=== PATIENT | female | born 1960 | race Caucasian/White ===

== ENCOUNTER 2017-12-28 05:40 | Outpatient (CLI) | payer BC ==
[~2017-12-28] VITALS: Ht 154.9 cm; Wt 68.0 kg
[2017-12-31] MEDS ORDERED: SERT50TA2 PO (14:46)
[2017-12-31] MEDS ORDERED: MULT-351 PO (14:46)
== END 2017-12-31 14:51 ==
LOC: PREOP 05:40
PROVIDERS: ATTEND Specialist
DX: Z01.818 Encounter for other preprocedural examination (principal); H25.11 Age-related nuclear cataract, right eye

== ENCOUNTER 2018-01-04 09:12 | Day surgery (SDC) | payer BC ==
[~2018-01-04] VITALS: Ht 154.9 cm; Wt 68.0 kg
[~2018-01-04 09:12] MED LIST: MULT-351 PO; SERT50TA2 PO
[2018-01-04] MEDS ORDERED: VANCOMYCIN/BSS (COMPOUNDED) 10 MG/ML SYR OP ONE (09:15)
[2018-01-04] MEDS ORDERED: POVIDONE (BETADINE) OPHTH SOLN 5% 30 ML OP ONE (09:15)
[2018-01-04] MEDS ORDERED: TIMOLOL MALEATE 0.5% 5 ML (TIMOPTIC) BTL OU PRN (09:15)
[2018-01-04] MEDS ORDERED: LIDOCAINE PF 1% 2 ML AMP IR PRN (09:15)
[2018-01-04] MEDS ORDERED: EPINEPHrine INJECTION 1 MG/ML AMP INJ ONE (09:15)
[2018-01-04] MEDS: TETRACAINE 0.5% OPHTH SOLN 4 ML BTL (SINGLE DOSE ONLY) OU PRN ×4 (09:23→09:37)
[2018-01-04 09:25] VITALS: BP 101/61
[2018-01-04] MEDS: PHENYLEPHRINE 10% OPHTH (NEO-SYN) 5 ML BTL OU SCH ×3 (09:30→09:38)
[2018-01-04] MEDS: CYCLOPENTOLATE 1% (CYCLOGYL) 2 ML DROPS OP SCH ×3 (09:30→09:37)
--- NOTE | 2018-01-04 09:36 | Ophthalmologist Pre-Op Note ---
Pre-Operative Progress Note H&P Reviewed The H&P was reviewed, patient examined and no changes noted. Date H&P Reviewed: January 04, 2018 Time H&P Reviewed: 09:36 Pre-Op Dx Cataract, Right Eye CRISTOBAL YI MD January 04, 2018 09:36
[2018-01-04] MEDS ORDERED: MIDAZOLAM 2 MG/2 ML (VERSED) VIAL ONE (09:46)
--- NOTE | 2018-01-04 10:13 | Ophthalmology Operative Report ---
Cataract removal/placement IOL PREOPERATIVE DIAGNOSIS: Cataract Right Eye POSTOPERATIVE DIAGNOSIS: Cataract Right Eye PROCEDURE: Cataract removal and placement of posterior chamber implant, right eye SURGEON: Chavez Yi ANESTHESIA: Topical with sedation COMPLICATIONS: None ESTIMATED BLOOD LOSS: Minimal DESCRIPTION OF PROCEDURE: After proper informed consent was obtained, the patient, a 57 female, was taken to the Operating Room and the right eye was anesthetized with tetracaine. They right eye was then prepped and draped in the usual manner. A wire lid speculum was placed. A paracentesis was made at the left hand position. Preservative free lidocaine was injected into the anterior chamber followed by viscoelastic. A clear corneal incision was made in the temporal position. A capsulorrhexis was preformed and the central nuclear and cortical material were removed. The posterior capsule was polished and José 20.5 SN6CWS IOL was placed into the capsular bag. The residual viscoelastic was aspirated and balanced saline solution was injected into the anterior chamber. 0.1ml of Vancomycin (10mg/0.1ml ) was injected into the anterior chamber. The wound was checked and found to be water tight. The patient tolerated the procedure well without complications. CHAVEZ YI MD January 04, 2018 10:13
[2018-01-04 10:23] VITALS: BP 98/74
--- NOTE | 2018-01-04 13:07 | Anesthesia-General Post-Op ---
MAC Patient Condition Mental Status/LOC: Same as Preop Cardiovascular: Satisfactory Nausea/Vomiting: Absent Respiratory: Satisfactory Pain: Controlled Complications: Absent Post Op Complications Complications None Follow Up Care/Instructions Patient Instructions None needed. Anesthesiology Discharge Order Discharge Order Patient is doing well, no complaints, stable vital signs, no apparent adverse anesthesia problems. No complications reported per nursing. FELIPE REINOSO CRNA January 04, 2018 13:07
== END 2018-01-04 10:23 | disposition home or self-care (01) ==
LOC: SDC 09:12
PROVIDERS: ATTEND Specialist
DX: H26.9 Unspecified cataract (principal)

== ENCOUNTER 2020-03-08 05:54 | Outpatient (RCR) | payer BC ==
[~2020-03-08] VITALS: Ht 154 cm; Wt 68.0 kg
[2020-03-10] MEDS ORDERED: CITA10TA7 PO (13:40)
== END 2020-06-06 | disposition home or self-care (01) ==
LOC: PREOP 05:54
PROVIDERS: ATTEND Specialist
DX: Z01.818 Encounter for other preprocedural examination (principal)

== ENCOUNTER 2020-03-12 06:45 | Day surgery (SDC) | payer BC ==
[~2020-03-12] VITALS: Ht 154 cm; Wt 68.0 kg
[~2020-03-12 06:45] MED LIST changes: +CITA10TA7 PO
[2020-03-12 06:50] VITALS: BP 107/69
[2020-03-12] MEDS ORDERED: TROPICAMIDE 1% OPH SOLN (MYDRIACYL) 15 ML BTL OU PRN (07:00)
[2020-03-12] MEDS ORDERED: PHENYLEPHRINE 10% OPHTH (NEO-SYN) 5 ML BTL OU PRN (07:00)
[2020-03-12] MEDS: TETRACAINE 0.5% OPHTH SOLN 4 ML BTL (SINGLE DOSE ONLY) OU PRN ×2 (07:07→07:32)
[2020-03-12 07:45] VITALS: BP 107/69
--- NOTE | 2020-03-12 08:07 | Ophthalmologist Pre-Op Note ---
Pre-Operative Progress Note H&P Reviewed The H&P was reviewed, patient examined and no changes noted. Date H&P Reviewed: Mar 12, 2020 Time H&P Reviewed: 07:41 Pre-Op Dx Secondary Cataract, Right Eye CRISTOBAL YI MD Mar 12, 2020 08:07
--- NOTE | 2020-03-12 08:08 | Ophthalmology Operative Report ---
YAG Capsulotomy PREOPERATIVE DIAGNOSIS: Secondary Cataract Left Eye POSTOPERATIVE DIAGNOSIS: Secondary Cataract Left Eye PROCEDURE: YAG Capsulotomy, left eye SURGEON: Chavez Yi ANESTHESIA: Topical anesthesia COMPLICATIONS: None ESTIMATED BLOOD LOSS: Minimal DESCRIPTION OF PROCEDURE: After proper informed consent was obtained, the patient's, a 59 female left eye received one drop of Tropicamide and one drop of Tetracaine. The patient was then placed at the YAG laser and using a power of [ 4.0] millijoules and [18 ] bursts were used to fashion a central capsulotomy. The patient tolerated the procedure well without complications. CHAVEZ YI MD Mar 12, 2020 08:08
--- OUTSIDE RECORDS SUMMARY | 2020-03-12 09:11 | XMS REPORT | Continuity of Care Document ---
Author Organization Unknown Address Unknown Phone Unavailable Allergies Active Description Code Type Severity Reaction Onset Reported/Identified Relationship to Patient Clinical Status Yes Iodine and Iodide Containing Produc [id number] Drug Allergy Severe ANAPHYLACTIC SH 03/10/2020 Yes meclizine [id number] Drug Allergy Mild HIVES 03/10/2020 Medications There is no data. Problems Date Dx Coded Attending Type Code Diagnosis Diagnosed By 12/31/2017 CRISTOBAL YI MD Ot H25.11 AGE-RELATED NUCLEAR CATARACT, RIGHT EYE 12/31/2017 CRISTOBAL YI MD Ot Z01.818 ENCOUNTER FOR OTHER PREPROCEDURAL EXAMIN 12/31/2017 CRISTOBAL YI MD Ot H25.11 AGE-RELATED NUCLEAR CATARACT, RIGHT EYE 12/31/2017 CRISTOBAL YI MD Ot Z01.818 ENCOUNTER FOR OTHER PREPROCEDURAL EXAMIN 01/04/2018 CRISTOBAL YI MD Ot H26 .9 UNSPECIFIED CATARACT Procedures There is no data. Results There is no data. Encounters ACCT No. Visit Date/Time Discharge Status Pt. Type Provider Facility Loc./Unit Complaint [id number] 06/18/2019 08:29:00 06/18/2019 23:59: 00 [facility] Outpatient [facility], PHY [id number] 10/16/2018 09:58:00 10/16/2018 23:59: 00 DIS Outpatient Marianela Ward [id number] 03/08/2020 05:54:00 020 23:59:59 CLS Outpatient CRISTOBAL YI MD [facility] PREOP YAG [id number] 01/04/2018 09:12:00 018 10:23:00 DIS Outpatient CRISTOBAL YI MD [facility] SDC CATARACT RIGHT EYE [id number] 12/28/2017 05:40:00 018 14:51:00 DIS Outpatient CRISTOBAL YI MD [facility] PREOP CATARACT RIGHT EYE [id number] 03/12/2020 08:30:00 P EN Preadmit KD GAUTAM, CRISTOBAL [facility] YAG
== END 2020-03-12 07:45 | disposition home or self-care (01) ==
LOC: SDC 06:45
PROVIDERS: ATTEND Specialist
DX: H26.492 Other secondary cataract, left eye (principal)

== ENCOUNTER 2023-01-18 15:52 | Emergency (ER) | payer OTHER, BC ==
[~2023-01-18] VITALS: Ht 154 cm; Wt 69.3 kg
[~2023-01-18 15:52] MED LIST changes: -CITA10TA7 PO; +CITA10TA9 PO
[2023-01-18 16:05] VITALS: BP 110/79
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
== END 2023-01-18 16:43 | disposition home or self-care (01) ==
LOC: EDUNIT# 15:52 → ER 15:56
DX: S20.211A Contusion of right front wall of thorax, initial encounter (principal); V89.2XXA Person injured in unspecified motor-vehicle accident, traffic, initial encounter; Y92.410 Unspecified street and highway as the place of occurrence of the external cause
CPT/HCPCS: 99281

== ENCOUNTER 2023-04-05 11:04 | Inpatient (IN) | payer BC ==
[~2023-04-05] VITALS: Ht 155 cm; Wt 70.3 kg
[2023-04-05] MEDS ORDERED: NS IV 1000 ML 1,000 ML IV SCH (11:15)
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
[2023-04-05 11:23] LABS: BASOPHILS # (AUTO) 0.1 10^3/uL (0.0-0.1); BASOPHILS % (AUTO) 0 % (0-10); EOSINOPHILS % (AUTO) 0 % (0-10); HEMATOCRIT 43 % (35-52); HEMOGLOBIN 15.1 g/dL (11.5-16.0); LYMPHOCYTES # (AUTO) 1.2 10^3/uL (1.0-4.0); LYMPHOCYTES % (AUTO) 5 % (12-44); MEAN CORPUSCULAR HEMOGLOBIN 30 pg (25-34); MEAN CORPUSCULAR HGB CONC 35 g/dL (32-36); MEAN CORPUSCULAR VOLUME 86 fL (80-99); MEAN PLATELET VOLUME 9.8 fL (9.0-12.2); MONOCYTES # (AUTO) 0.7 10^3/uL (0.0-1.0); MONOCYTES % (AUTO) 3 % (0-12); NEUTROPHILS # (AUTO) 20.7 10^3/uL (1.8-7.8); NEUTROPHILS % (AUTO) 91 % (42-75); PLATELET COUNT 376 10^3/uL (130-400); WHITE BLOOD COUNT 22.7 10^3/uL (4.3-11.0)
[2023-04-05 11:30] LABS: ALBUMIN 4.2 GM/DL (3.2-4.5); POTASSIUM 3.1 MMOL/L (3.6-5.0)
[2023-04-05] MEDS ORDERED: LIDOCAINE UROJET 2% GEL 10 ML PKG TOP ONE (11:30)
[2023-04-05 11:32] LABS: CALCIUM 9.1 MG/DL (8.5-10.1)
[2023-04-05 11:35] LABS: BILIRUBIN,TOTAL 0.7 MG/DL (0.1-1.0)
[2023-04-05 11:36] LABS: CREATININE SERUM 0.67 MG/DL (0.60-1.30)
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
--- NOTE | 2023-04-05 11:41 | Diagnostic Imaging Report ---
PELVIS WITH LEFT HIP 2-3 VIEWS INDICATION: Left hip pain. COMPARISON: None available. TECHNIQUE: AP pelvis with AP and crosstable lateral views of the left hip. FINDINGS: There is an acute intertrochanteric fracture of the proximal left femur with a conventional orientation. The lesser trochanter fragment is medially displaced. No proximal migration of the femoral shaft. Mild osteoarthritis of the left hip. SI joints are normal in alignment. No fracture in the obturator ring on either side. IMPRESSION: Acute intertrochanteric fracture of the left femur. Dictated by: Dictated on workstation # [id number]
[2023-04-05] MEDS ORDERED: fentaNYL INJECTION 100 MCG/2 ML VIAL IVP ONE (12:00)
[2023-04-05 12:01] LABS: BAND NEUTROPHILS 1 %; LYMPHOCYTES % (MANUAL) 4 %; MONOCYTES % (MANUAL) 2 %; NEUTROPHILS % (MANUAL) 93 %; RBC MORPH NORMAL
[2023-04-05] MEDS ORDERED: POTASSIUM CHLORIDE 20 MEQ TABLET PO ONE (12:15)
[2023-04-05] MEDS ORDERED: ORPHENADRINE 60 MG/2 ML (NORFLEX) AMP (ED ONLY) IV ONE (12:15)
[2023-04-05 12:53] LABS: CLARITY,URINE CLEAR; COLOR,URINE YELLOW; GLUCOSE, URINE (UA) NEGATIVE (NEGATIVE); PH,URINE 7.5 (5-9); PROTEIN,URINE NEGATIVE (NEGATIVE)
[2023-04-05 12:54] LABS: KETONES,URINE TRACE (NEGATIVE)
[2023-04-05 12:56] LABS: BILIRUBIN,URINE NEGATIVE (NEGATIVE); LEUKOCYTE ESTERASE ,URINE NEGATIVE (NEGATIVE); NITRITE,URINE NEGATIVE (NEGATIVE)
[2023-04-05 12:57] LABS: AMORPHOUS SEDIMENT,UR MOD AMOR PHOSPHATE /LPF; BACTERIA,URINE NEGATIVE /HPF; SQUAMOUS EPITHELIAL CELL,UR RARE /HPF
[2023-04-05 14:15] VITALS: BP 141/83
[2023-04-05] MEDS: morphine INJ 4 MG/ML 1 ML (VIAL/SYRINGE) IVP PRN ×5 (14:30→22:59)
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
[2023-04-05] MEDS ORDERED: PROCHLORPERAZINE 10 MG/2ML INJ (COMPAZINE) IV PRN (15:00)
[2023-04-05] MEDS ORDERED: ONDANSETRON 4 MG/2 ML (SDV) Z0FRAN IVP PRN (15:00)
[2023-04-05] MEDS ORDERED: morphine INJ 4 MG/ML 1 ML (VIAL/SYRINGE) IVP PRN (15:15)
[2023-04-05] MEDS: NS IV 1000 ML 1,000 ML IV SCH ×2 (15:24→22:59)
[2023-04-05] MEDS: HYDROcodone/ACETAMINOPHEN 7.5 MG/325 MG TABLET PO PRN ×2 (15:33→19:53)
[2023-04-05 15:35] VITALS: BP 137/80
[2023-04-05] MEDS ORDERED: VITA-189 PO (15:43)
[2023-04-05] MEDS ORDERED: ASCO-262 PO (15:43)
[2023-04-05] MEDS ORDERED: CALC-823 PO (15:43)
--- NOTE | 2023-04-05 16:03 | HISTORY AND PHYSICAL ---
DATE OF SERVICE: 04/05/2023 REASON FOR ADMISSION: Closed displaced left intertrochanteric femur fracture. HISTORY OF PRESENT ILLNESS: The patient is a 63-year-old female who fell at home this morning. She twisted on a step landing on her left side. She was found down and brought to the Emergency Department where she was found to have a closed displaced left intertrochanteric femur fracture for which I was consulted. She denies antecedent pain. She reports prior history of hip problems. Radiographs revealed displaced closed intertrochanteric femur fracture. ALLERGIES: TO IODINE, MECLIZINE. HOME MEDICATIONS: Citalopram. PAST MEDICAL HISTORY: Significant for hypertension. The patient denies alcohol and tobacco use. PHYSICAL EXAMINATION: GENERAL: The patient is well-developed, well-nourished, in no acute distress. HEENT: Normocephalic, atraumatic. Pupils equal, round, reactive to light. Oropharynx is clear. NECK: Supple. No lymphadenopathy. LUNGS: Clear to auscultation bilaterally. HEART: Regular rate and rhythm. ABDOMEN: Soft, nontender, nondistended. EXTREMITIES: The left lower extremity shortened and externally rotated. She has symmetric pulses. She has intact dorsiflexion and plantarflexion of the toes with brisk capillary refill and symmetric pulses. IMPRESSION: Closed displaced left intertrochanteric femur fracture. PLAN: Left hip intramedullary nail. The risks, benefits, options, ramifications and recovery have been discussed at length with the patient. She understands and wishes to proceed. We will plan for surgical intervention tomorrow, n.p.o. after midnight. Job ID: [id number] DocumentID: [id number] Dictated Date: 04/05/2023 15:37:42 Painter Rough Date: 04/05/2023 16:01:00 Dictated By: DAVID LAST MD
[2023-04-05 19:26] VITALS: BP 146/80
[2023-04-05] MEDS ORDERED: diphenhydrAMINE 25 MG TABLET PO PRN (22:00)
[2023-04-05] MEDS ORDERED: diphenhydrAMINE INJ 50 MG/ML VIAL IV PRN (22:00)
[2023-04-05 23:01] VITALS: BP 114/73
[2023-04-06] VITALS (11 sets, daily range): BP systolic 81–143; BP diastolic 45–81
[2023-04-06] MEDS: HYDROcodone/ACETAMINOPHEN 7.5 MG/325 MG TABLET PO PRN ×4 (00:01→20:49)
[2023-04-06] MEDS: morphine INJ 4 MG/ML 1 ML (VIAL/SYRINGE) IVP PRN ×3 (04:24→18:46)
[2023-04-06 05:13] LABS: BASOPHILS # (AUTO) 0.1 10^3/uL (0.0-0.1); BASOPHILS % (AUTO) 1 % (0-10); EOSINOPHILS # (AUTO) 0.1 10^3/uL (0.0-0.3); EOSINOPHILS % (AUTO) 1 % (0-10); HEMATOCRIT 37 % (35-52); HEMOGLOBIN 12.5 g/dL (11.5-16.0); LYMPHOCYTES # (AUTO) 2.5 10^3/uL (1.0-4.0); LYMPHOCYTES % (AUTO) 26 % (12-44); MEAN CORPUSCULAR HEMOGLOBIN 30 pg (25-34); MEAN CORPUSCULAR HGB CONC 34 g/dL (32-36); MEAN CORPUSCULAR VOLUME 88 fL (80-99); MEAN PLATELET VOLUME 9.7 fL (9.0-12.2); MONOCYTES # (AUTO) 0.9 10^3/uL (0.0-1.0); MONOCYTES % (AUTO) 9 % (0-12); NEUTROPHILS # (AUTO) 6.2 10^3/uL (1.8-7.8); NEUTROPHILS % (AUTO) 63 % (42-75); PLATELET COUNT 299 10^3/uL (130-400); WHITE BLOOD COUNT 9.8 10^3/uL (4.3-11.0)
[2023-04-06 05:23] LABS: POTASSIUM 3.4 MMOL/L (3.6-5.0)
[2023-04-06 05:24] LABS: CALCIUM 8.4 MG/DL (8.5-10.1)
[2023-04-06 05:29] LABS: CREATININE SERUM 0.66 MG/DL (0.60-1.30)
[2023-04-06] MEDS: fentaNYL INJECTION 100 MCG/2 ML VIAL IVP PRN ×3 (07:44→17:33)
[2023-04-06] MEDS: NS IV 1000 ML 1,000 ML IV SCH (10:05)
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
[2023-04-06] MEDS ORDERED: MIDAZOLAM INJ 2 MG/2 ML VIAL ONE (11:50)
[2023-04-06] MEDS ORDERED: BUPIVACAINE 0.25% 30 ML VIAL ONE (12:01)
--- NOTE | 2023-04-06 13:23 | Progress Note-Pre Operative ---
Pre-Operative Progress Note Date of Available H&P: Apr 05, 2023 Date H&P Reviewed: Apr 06, 2023 Time H&P Reviewed: 13:12 Changes from last HP none Pre-Operative Diagnosis: left intertrochanteric femur fracture DAVID LAST MD Apr 06, 2023 13:23
--- NOTE | 2023-04-06 13:25 | Progress Note-Post Operative ---
Post-Operative Progess Note Surgeon (s)/Licensed Loan Officer Assistant (s) Surgeon DAVID LAST MD Licensed Loan Officer Assistant: Jacob Love Pre-Operative Diagnosis left intertrochanteric femur fracture Post-Operative Diagnosis left intertrochanteric femur fracture Procedure & Operative Findings Date of Procedure 04/06/23 Procedure Performed/Findings left hip IM nail Anesthesia Type spinal Estimated Blood Loss Estimated blood loss (mL): 200ml Specimens/Packing Specimens Removed none Packing: none DAVID LAST MD Apr 06, 2023 13:25
[2023-04-06] MEDS: LACTATED RINGERS 1,000 ML IV PRN ×2 (13:26→14:07)
[2023-04-06] MEDS ORDERED: ceFAZolin INJECTION 2,000 MG in NS (IVPB) 50 ML 50 ML IV NR (13:30)
[2023-04-06] MEDS ORDERED: NALOXONE 0.4 MG/ML 1 ML VIAL IV PRN (13:45)
[2023-04-06] MEDS ORDERED: morphine INJ 4 MG/ML 1 ML (VIAL/SYRINGE) IVP PRN (13:45)
[2023-04-06] MEDS ORDERED: HYDROcodone/ACETAMINOPHEN 7.5 MG/325 MG TABLET PO PRN (13:45)
[2023-04-06] MEDS ORDERED: ONDANSETRON 4 MG/2 ML (SDV) Z0FRAN IVP PRN (13:45)
[2023-04-06] MEDS ORDERED: BUPIVACAINE 0.25% 30 ML VIAL INJ ONE (13:51)
[2023-04-06] MEDS ORDERED: BUPIVACAINE 0.5% 30 ML VIAL ONE (14:34)
[2023-04-06] MEDS ORDERED: PROPOFOL INJECTION 50 ML IV ONE (14:34)
[2023-04-06] MEDS ORDERED: PHENYLEPHRINE 100 MCG/ML 10 ML (ANESTHESIA) SYR ONE (14:35)
--- NOTE | 2023-04-06 14:51 | Physical Therapy Progress Note ---
Therapy Progress Note Patient is currently in surgery. PT will evaluate patient tomorrow rosa maria RN notified. LAURY PORTER PT Apr 06, 2023 14:51
--- NOTE | 2023-04-06 16:46 | Diagnostic Imaging Report ---
INDICATION: Hip fracture. Intraoperative guidance. COMPARISON: 04/05/2023. TOTAL FLUOROSCOPY TIME: 67 seconds. TOTAL NUMBER OF FLUOROSCOPIC IMAGES SAVED: 5. FINDINGS: Multiple intraoperative image intensifier views of the left hip were obtained during ORIF. Images provided show placement of short intramedullary catalina within the proximal left femoral shaft. This intersects a screw which traverses the femoral head and neck. As a result, there is improved alignment of the major fracture fragments. Please note, interpreting radiologist was not present during the procedure. IMPRESSION: 1. Fluoroscopic guidance provided intraoperatively as above. Dictated by: Dictated on workstation # [id number]
[2023-04-06] MEDS: ceFAZolin INJECTION 2,000 MG in NS (IVPB) 50 ML 50 ML IV SCH (20:48)
--- NOTE | 2023-04-06 21:05 | OPERATIVE REPORT ---
DATE OF SERVICE: 04/06/2023 PREOPERATIVE DIAGNOSIS: Closed displaced left intertrochanteric femur fracture. POSTOPERATIVE DIAGNOSIS: Closed displaced left intertrochanteric femur fracture. PROCEDURE: Left hip intramedullary nail. SURGEON: Jose Last MD CARETAKER: Jacob Love, who assisted throughout the procedure and closed the incisions. ANESTHESIA: Spinal by Sangeetha Cochran CRNA. ESTIMATED BLOOD LOSS: 200 mL. DRAINS: None. COMPLICATIONS: None. POSTOPERATIVE PLAN: Weightbearing as tolerated, left lower extremity. The patient was transferred to the recovery room awake and in stable condition. STATEMENT OF MEDICAL NECESSITY: The patient is a 63-year-old female who fell at home yesterday. She presented to the Emergency Department yesterday afternoon and was found to have a displaced left intertrochanteric femur fracture. The patient elected to proceed with surgical intervention in order to maintain her ambulation and independent lifestyle. DESCRIPTION OF PROCEDURE: After risks and benefits of the procedure were discussed and questions were answered and informed consent was signed and placed on the chart, the operative site was confirmed in the preoperative holding area initialed by surgeon. The patient was then transported to the operating room and after adequate levels of regional anesthetic was obtained, the patient was carefully placed on the fracture table. Gentle longitudinal traction was applied and fluoroscopy in AP and lateral planes revealed anatomic alignment of the fracture. The left hip and lower extremity were then prepped and draped in the usual sterile fashion. An incision was made from the greater trochanter extending proximally approximately 4 cm. The iliotibial band was incised. Under fluoroscopic guidance, the guidewire was passed through the greater trochanter and into the femoral canal. This was confirmed well positioned in the AP and lateral planes fluoroscopically. This was then overreamed and a Synthes nail was placed with good purchase obtained. Through a percutaneous incision, the guidewire was passed into the femoral head and felt to be in excellent position. This was then drilled laterally and a 90 mm blade was placed with good purchase. The fracture was then compressed and found to be in anatomic alignment in the AP and lateral planes. Through the same distal percutaneous incision, the locking screw was placed and fluoroscopy in AP and lateral planes revealed well-placed locking screw. The fracture was in anatomic alignment. The wounds were copiously irrigated. The iliotibial band was closed with #1 Vicryl in [id number] interrupted fashion, 2-0 Vicryl was used for the subcutaneous tissue on both incisions. Armando were used on the skin. The incisions were infiltrated with plain Marcaine. A soft dressing was applied. The patient was transferred to the recovery room awake and in stable condition. Job ID: [id number] DocumentID: [id number] Dictated Date: 04/06/2023 14:46:55 Corporate Events Director Date: 04/06/2023 21:03:00 Dictated By: JOSE LAST MD
[2023-04-07] VITALS: BP 116/63
[2023-04-07] MEDS: HYDROcodone/ACETAMINOPHEN 7.5 MG/325 MG TABLET PO PRN ×5 (01:01→22:16)
[2023-04-07] MEDS: NS IV 1000 ML 1,000 ML IV SCH ×4 (01:01→22:14)
[2023-04-07 04:00] VITALS: BP 113/56
[2023-04-07 05:17] LABS: HEMOGLOBIN 11.2 g/dL (11.5-16.0)
[2023-04-07] MEDS: ceFAZolin INJECTION 2,000 MG in NS (IVPB) 50 ML 50 ML IV SCH (05:32)
[2023-04-07 08:02] VITALS: BP 120/64
[2023-04-07] MEDS: morphine INJ 4 MG/ML 1 ML (VIAL/SYRINGE) IVP PRN (08:33)
[2023-04-07] MEDS: ENOXAPARIN 40 MG/0.4 ML SYRINGE SC SCH (09:04)
[2023-04-07] MEDS ORDERED: POTASSIUM CHLORIDE 20 MEQ TABLET PO NR (09:45)
--- NOTE | 2023-04-07 10:13 | Progress Note ---
Standard Progress Note Progress Notes/Assess & Plan Date Seen by a Provider: Apr 07, 2023 Time Seen by a Provider: 10:12 Progress/Assessment & Plan no complaints Vital Signs Date Time Temp Pulse Resp B/P (MAP) Pulse Ox O2 Delivery O2 Flow Rate FiO2 04/07/23 08:02 37.2 108 18 120/64 (82) 93 Room Air 04/07/23 08:00 Room Air 04/07/23 04:00 116 18 113/56 (75) 93 04/07/23 00:00 124 18 116/63 (80) 95 Room Air 04/06/23 22:34 Room Air 04/06/23 20:36 37.4 117 16 120/78 (92) 94 Room Air 04/06/23 20:30 94 Room Air 04/06/23 15:50 37.5 101 16 143/70 (94) 97 Room Air 04/06/23 15:25 Room Air 04/06/23 15:20 36.7 20 111/71 (84) 98 Room Air 04/06/23 15:10 Room Air 04/06/23 15:10 16 111/59 (76) 98 Room Air 04/06/23 15:00 14 110/67 (81) 98 Room Air 04/06/23 14:50 Room Air 04/06/23 14:50 14 81/45 (57) 100 Room Air 04/06/23 14:40 15 90/55 (67) 100 OxyMask 3.00 04/06/23 14:36 37.2 14 98/62 (74) 100 OxyMask 6.00 04/06/23 14:36 OxyMask 6.00 04/06/23 11:46 37.0 100 110/69 (83) Room Air I & O 04/07/23 07:00 Intake Total 1890 ml Output Total 2425 ml Balance -535 ml Laboratory Tests Test 04/07/23 05:04 Range/Units Hemoglobin 11.2 L 11.5-16.0 g/dL Hematocrit 32 L 35-52 % LLE intact DF and PF of toes and ankle intact sensation throughout pulses equal s/p L hip IM catalina PT/OT DAVID LAST MD Apr 07, 2023 10:13
[2023-04-07] MEDS ORDERED: OXYC1TAB87 PO (10:15)
--- NOTE | 2023-04-07 10:17 | D/C HH Face to Face Order ---
D/C Face to Face Orders Reconcile Patient Problems Problems Reviewed?: Yes Instructions for Patient Via Rosetta Jibe, Patient Instructions/FollowUp: two weeks Physician to follow Patient: two weeks Discharge Diet for Home: Regular Diet Patient Data-Allergies,Ht & Wt Patient Allergies: Coded Allergies: Iodine and Iodide Containing Produc (Verified Allergy, Severe, ANAPHYLACTIC SHOCK, 03/10/20) meclizine (Verified Allergy, Mild, HIVES, 03/10/20) Height (Feet): 5 Height (Inches): 1.00 Weight (Pounds): 150 Weight (Ounces): 0.0 Home Health Need/Face to Face Date of Face to Face: Apr 07, 2023 Clinical Findings: Instability, Muscle weakness, Pain with ambulation, Unsteady gait I have seen Pt [id number]: Yes Discharged To: Home Diagnosis/Conditions: left hip intertrochanteric femur fracture Patient is Homebound due to: Flaco fall risk due to instabilty, Pain w/ambulation Homebound Status Due to the above stated illness, injury or surgical procedure (medical condition or diagnosis) and associated clinical findings, the patient is homebound because of his/her inability to leave home except with aid of a supportive device and/or person AND leaving the home requires a considerable and taxing effort or is medically contraindicated. Pt req the following assistanc: [facility] Nursing Orders Home Health Services Order: Physical Therapy-Evaluate & Treat [facility] Infusion Therapy Line Start Date: Apr 05, 2023 Therapy Orders Therapy Orders: Physical Therapy, PT to assess for OT Therapy Specific Orders: Eval assistive deivces, Teach enviro modifications/safety, Gait training, Increase strength/endurance, Provider maintenance therapy, Restore ROM Certify Stmt I certify that this patient is under my care and that I, a nurse practitioner or a physician; a stylist assistant working with me, had a face to face encounter that - meets the physician face to face encounter requirements with this patient as dated. DAVID LAST MD Apr 07, 2023 10:17
--- NOTE | 2023-04-07 10:18 | Physical Therapy Evaluation ---
PT Evaluation-General Medical Diagnosis Admission Date Apr 05, 2023 at 14:06 Medical Diagnosis: Intertrochanteric fracture L femur Onset Date: Apr 06, 2023 Therapy Diagnosis Therapy Diagnosis: decreased mobility Height/Weight Height (Feet): 5 Height (Inches): 1.00 Weight (Pounds): 150 Weight (Ounces): 0.0 Precautions Precautions/Isolations: Standard Precautions Weight Bear Status Right Lower Extremity: Right Full Weight Bearing Left Lower Extremity: Left Touch Toe Bearing Referral Physician: Judith Reason for Referral: Evaluation/Treatment Medical History Current History EMS due to fall on L hip after twisting her ankle. Social History Home: Single Level Current Living Status: Alone Entry Into Home: Stairs With Railing PT Steps Into Home: 2 Prior Prior Level of Function SCALE: Activities may be completed with or without assistive devices. 8-Yccmqsycqt-ssugyco completes the activity by him/herself with no assistance from a helper. 5-Set-up or Clean-up Assistance-helper sets up or cleans up; patient completes activity. [place] assists only prior to or following the activity. 4-Supervision or Touching Assistance-helper provides verbal cues and/or touching/steadying and/or contact guard assistance as patient completes activi ty. Assistance may be provided throughout the activity or intermittently. 3-Partial/Moderate Assistance-helper does LESS THAN HALF the effort. [place] lifts, holds or supports trunk or limbs, but provides less than half the effort. 2-Substantial/Maximal Assistance-helper does MORE THAN HALF the effort. [place] lifts or holds trunk or limbs and provides more than half the effort. 7-Atzuemsmk-qmrnly does ALL the effort. Patient does none of the effort to complete the activity. Or, the assistance of 2 or more helpers is required for the patient to complete the activity. If activity was not attempted, code reason: 7-Patient Refused. 9-Not Applicable-not attempted and the patient did not perform the activity before the current illness, exacerbation or injury. 10-Not Attempted due to Environmental Limitations-(lack of equipment, weather restraints, etc.). 88-Not Attempted due to Medical Conditions or Safety Concerns. Bed Mobility: 6 Transfers (B,C,W/C): 6 Gait: 6 Stairs: 6 Indoor Mobility (Ambulation): Independent Stairs: Independent Prior Devices Use: None PT Evaluation-Current Subjective Pt. in bed, requests pain meds before beginning PT. Pain rated 6/10. Nursing notified and brings meds in. Pt/Family Goals home with help from neighbor and sister Objective Patient Orientation: Person, Place, Time, Situation Attachments: Sesay Catheter, IV ROM/Strength ROM Upper Extremities WNL ROM Lower Extremities WNL R LE, n/a L LE Strength Upper Extremities WNL Strength Lower Extremities WNL R LE, n/a L LE Integumentary/Posture Integumentary bandages covering L lateral hip Bowel Incontinence: No Bladder Incontinence: Sesay Cath Posture generally upright Neuromuscular (Tone, Coordination, Reflexes) grossly intact Sensory Vision: Wears Glasses Hearing: Functional Sensation Right Upper Extremit: Intact Sensation Left Upper Extremity: Intact Sensation Right Lower Extremit: Intact Sensation Left Lower Extremity: Intact Transfers Lying to Sitting/Side of Bed(Q: 3 Sit to Stand (QC): 4 Chair/Ukf-of-Mwqst Xfer(QC): 4 Gait Does the Patient Walk?: Yes Mode of Locomotion: Walk Anticipated Mode of Locomotion: Walk Distance: 3 ft to chair Gait Assistive Device: FWW Comments/Gait Description pt. does well maintaining TTWB during transfers Balance Sitting Static: Good Sitting Dynamic: Good Standing Static: Good Standing Dynamic: Fair Assessment/Needs Pt. is a 63 y.o. female with L femur fracture sustained during a fall. Pt. is currently mod A with bed transfers and min A/CGA with sit to stand and taking a few steps to chair. She did well maintaining TTWB but was limited in mobility due to pain. Pt. would benefit from skilled PT to restore mobility and strength for return home. Rehab Potential: Good PT Elevator Examiner Goals Elevator Examiner Goals PT Mcfp Goals Time Frame: Apr 14, 2023 Sit to Lying (QC): 4 Lying-Sitting on Side/Bed(QC): 4 Sit to Stand (QC): 6 Chair/Uzf-rh-Tmwkv Xfer(QC): 6 Does the Patient Walk: Yes Walk 10 feet (QC): 4 PT Plan Problem List Problem List: Activity Tolerance, Functional Strength, Safety, Balance, Gait, Transfer, Bed Mobility, ROM Treatment/Plan Treatment Plan: Continue Plan of Care Treatment Plan: Bed Mobility, Concurrent Therapy, Education, Functional Activity Adán, Functional Strength, Gait, Safety, Therapeutic Exercise, Transfers Treatment Duration: Apr 07, 2023 Frequency: 7 times per week Estimated Hrs Per Day: .25 hour per day Patient and/or Family Agrees t: Yes Time Time In: 824 Time Out: 856 DATE: Apr 07, 2023 Total Billed Treatment Time: 32 Total Billed Treatment 1, EVL 15', FA 17' MARY LEON PT Apr 07, 2023 10:18
[2023-04-07] MEDS ORDERED: CYCLOBENZAPRINE 10 MG TABLET PO PRN (11:00)
[2023-04-07] MEDS: CITALOPRAM 10 MG TABLET PO SCH (11:16)
[2023-04-07 11:30] VITALS: BP 110/59
[2023-04-07 15:47] VITALS: BP 120/62
[2023-04-07 19:30] VITALS: BP 118/58
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
[2023-04-08 04:00] VITALS: BP 116/61
[2023-04-08 05:17] LABS: HEMATOCRIT 29 % (35-52); HEMOGLOBIN 10.2 g/dL (11.5-16.0); MEAN CORPUSCULAR HEMOGLOBIN 30 pg (25-34); MEAN CORPUSCULAR HGB CONC 35 g/dL (32-36); MEAN CORPUSCULAR VOLUME 86 fL (80-99); MEAN PLATELET VOLUME 10.1 fL (9.0-12.2); PLATELET COUNT 235 10^3/uL (130-400); WHITE BLOOD COUNT 9.5 10^3/uL (4.3-11.0)
[2023-04-08 05:25] LABS: POTASSIUM 3.1 MMOL/L (3.6-5.0)
[2023-04-08 05:26] LABS: CALCIUM 8.1 MG/DL (8.5-10.1)
[2023-04-08 05:30] LABS: CREATININE SERUM 0.54 MG/DL (0.60-1.30)
[2023-04-08] MEDS: HYDROcodone/ACETAMINOPHEN 7.5 MG/325 MG TABLET PO PRN ×3 (05:45→19:36)
--- NOTE | 2023-04-08 07:41 | Progress Note ---
Standard Progress Note Progress Notes/Assess & Plan Date Seen by a Provider: Apr 08, 2023 Time Seen by a Provider: 07:33 Progress/Assessment & Plan no complaints Vital Signs Date Time Temp Pulse Resp B/P (MAP) Pulse Ox O2 Delivery O2 Flow Rate FiO2 04/07/23 08:02 37.2 108 18 120/64 (82) 93 Room Air 04/07/23 08:00 Room Air 04/07/23 04:00 116 18 113/56 (75) 93 04/07/23 00:00 124 18 116/63 (80) 95 Room Air 04/06/23 22:34 Room Air 04/06/23 20:36 37.4 117 16 120/78 (92) 94 Room Air 04/06/23 20:30 94 Room Air 04/06/23 15:50 37.5 101 16 143/70 (94) 97 Room Air 04/06/23 15:25 Room Air 04/06/23 15:20 36.7 20 111/71 (84) 98 Room Air 04/06/23 15:10 Room Air 04/06/23 15:10 16 111/59 (76) 98 Room Air 04/06/23 15:00 14 110/67 (81) 98 Room Air 04/06/23 14:50 Room Air 04/06/23 14:50 14 81/45 (57) 100 Room Air 04/06/23 14:40 15 90/55 (67) 100 OxyMask 3.00 04/06/23 14:36 37.2 14 98/62 (74) 100 OxyMask 6.00 04/06/23 14:36 OxyMask 6.00 04/06/23 11:46 37.0 100 110/69 (83) Room Air I & O 04/07/23 07:00 Intake Total 1890 ml Output Total 2425 ml Balance -535 ml Laboratory Tests Test 04/07/23 05:04 Range/Units Hemoglobin 11.2 L 11.5-16.0 g/dL Hematocrit 32 L 35-52 % LLE intact DF and PF of toes and ankle intact sensation throughout pulses equal s/p L hip IM catalina PT/OT Final Diagnosis feeling better Laboratory Tests Test 04/08/23 05:01 Range/Units White Blood Count 9.5 4.3-11.0 10^3/uL Red Blood Count 3.41 L 3.80-5.11 10^6/uL Hemoglobin 10.2 L 11.5-16.0 g/dL Hematocrit 29 L 35-52 % Mean Corpuscular Volume 86 80-99 fL Mean Corpuscular Hemoglobin 30 25-34 pg Mean Corpuscular Hemoglobin Concent 35 32-36 g/dL Red Cell Distribution Width 11.9 10.0-14.5 % Platelet Count 235 130-400 10^3/uL Mean Platelet Volume 10.1 9.0-12.2 fL Sodium Level 138 135-145 MMOL/L Potassium Level 3.1 L 3.6-5.0 MMOL/L Chloride Level 105 98-107 MMOL/L Carbon Dioxide Level 25 21-32 MMOL/L Anion Gap 8 5-14 MMOL/L Blood Urea Nitrogen 6 L 7-18 MG/DL Creatinine 0.54 L 0.60-1.30 MG/DL Estimat Glomerular Filtration Rate 103 BUN/Creatinine Ratio 11 Glucose Level 114 H 70-105 MG/DL Calcium Level 8.1 L 8.5-10.1 MG/DL Vital Signs Date Time Temp Pulse Resp B/P (MAP) Pulse Ox O2 Delivery O2 Flow Rate FiO2 04/08/23 04:00 110 16 116/61 (79) 94 04/07/23 21:00 96 Room Air 3.00 04/07/23 19:30 37.4 118 16 118/58 (78) 96 Room Air 04/07/23 15:47 37.3 114 18 120/62 (81) 94 Room Air 04/07/23 11:30 36.8 116 20 110/59 (76) 94 Room Air 04/07/23 08:02 37.2 108 18 120/64 (82) 93 Room Air 04/07/23 08:00 Room Air I & O 04/08/23 07:00 Intake Total 3112 ml Output Total 2700 ml Balance 412 ml left hip incisions clean and dry no calf tenderness neg Anant's s/p L hip IM catalina mobilize DAVID Myrick MD Apr 08, 2023 07:41
[2023-04-08 08:25] VITALS: BP 121/67
[2023-04-08] MEDS: ENOXAPARIN 40 MG/0.4 ML SYRINGE SC SCH (08:56)
[2023-04-08] MEDS: CITALOPRAM 10 MG TABLET PO SCH (09:02)
--- NOTE | 2023-04-08 09:03 | Physical Therapy Daily Note ---
PT Daily Note-Current Subjective Pt. in bed, states she is doing better today. Reports she has been moving her feet around but still can't lift the left leg. Pain Section J - Health Conditions 1. Rarely or not at all 2. Occasionally 3. Frequently 4. Almost constantly 8. Unable to answer Pain Effect on Sleep: 2 Pain Interference with Therapy: 2 Pain Interference w/Day-to-Day: 2 Mental Status Patient Orientation: Person, Place, Time, Situation Attachments: Sesay Catheter Transfers SCALE: Activities may be completed with or without assistive devices. 5-Czdevzckop-omaswal completes the activity by him/herself with no assistance from a helper. 5-Set-up or Clean-up Assistance-helper sets up or cleans up; patient completes activity. [place] assists only prior to or following the activity. 4-Supervision or Touching Assistance-helper provides verbal cues and/or touching/steadying and/or contact guard assistance as patient completes activity. Assistance may be provided throughout the activity or intermittently. 3-Partial/Moderate Assistance-helper does LESS THAN HALF the effort. [place] lifts, holds or supports trunk or limbs, but provides less than half the effort. 2-Substantial/Maximal Assistance-helper does MORE THAN HALF the effort. [place] lifts or holds trunk or limbs and provides more than half the effort. 3-Xbdcmonps-ayfahf does ALL the effort. Patient does none of the effort to complete the activity. Or, the assistance of 2 or more helpers is required for the patient to complete the activity. If activity was not attempted, code reason: 7-Patient Refused. 9-Not Applicable-not attempted and the patient did not perform the activity before the current illness, exacerbation or injury. 10-Not Attempted due to Environmental Limitations-(lack of equipment, weather restraints, etc.). 88-Not Attempted due to Medical Conditions or Safety Concerns. Lying to Sitting/Side of Bed(Q: 4 Sit to Stand (QC): 4 Chair/Eqv-ek-Rxcth Xfer(QC): 4 Weight Bearing Right Lower Extremity: Right Full Weight Bearing Left Lower Extremity: Left Touch Toe Bearing Gait Training Does the Patient Walk?: Yes Distance: 15 ft Walk 10 feet (QC): 4 Gait Persons Needed: 1 Gait Assistive Device: FWW cues for proper sequence and to maintain TTWB which patient appeared to maintain throughout ambulation in room Assessment Current Status: Good Progress Pt. able to increase ambulation in room today but does fatigue very quickly. She appears to maintain TTWB except with initial sit to stand transfer. Pt. continues to need min A with left LE for bed mobility. Pt. up in chair post session with call light and all needs met. PT [facility] Goals [facility] Goals PT Ophthalmic Technologist Goals Time Frame: Apr 14, 2023 Sit to Lying (QC): 4 Lying-Sitting on Side/Bed(QC): 4 Sit to Stand (QC): 6 Chair/Ztg-ma-Hdbxu Xfer(QC): 6 Does the Patient Walk: Yes Walk 10 feet (QC): 4 PT Plan Treatment/Plan Treatment Plan: Continue Plan of Care Treatment Plan: Bed Mobility, Concurrent Therapy, Education, Functional Activity Adán, Functional Strength, Gait, Safety, Therapeutic Exercise, Transfers Treatment Duration: Apr 07, 2023 Frequency: 7 times per week Estimated Hrs Per Day: .25 hour per day Patient and/or Family Agrees t: Yes Time Time In: 08 Time Out: 0858 DATE: Apr 08, 2023 Total Billed Treatment Time: 23 Total Billed Treatment 1, FA 13', GT 10' MARY LEON PT Apr 08, 2023 09:03
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
[2023-04-08 11:33] VITALS: BP 121/56
[2023-04-08 15:32] VITALS: BP 118/58
[2023-04-08 19:31] VITALS: BP 111/57
[2023-04-08 23:35] VITALS: BP 114/61
[2023-04-09 03:38] VITALS: BP 110/66
[2023-04-09 05:18] LABS: HEMATOCRIT 29 % (35-52); HEMOGLOBIN 9.9 g/dL (11.5-16.0); MEAN CORPUSCULAR HEMOGLOBIN 30 pg (25-34); MEAN CORPUSCULAR HGB CONC 35 g/dL (32-36); MEAN CORPUSCULAR VOLUME 87 fL (80-99); MEAN PLATELET VOLUME 10.4 fL (9.0-12.2); PLATELET COUNT 266 10^3/uL (130-400); WHITE BLOOD COUNT 9.3 10^3/uL (4.3-11.0)
[2023-04-09 05:33] LABS: CALCIUM 8.4 MG/DL (8.5-10.1)
[2023-04-09 05:37] LABS: CREATININE SERUM 0.53 MG/DL (0.60-1.30)
[2023-04-09 07:29] VITALS: BP 127/67
--- NOTE | 2023-04-09 07:32 | Progress Note ---
Standard Progress Note Progress Notes/Assess & Plan Date Seen by a Provider: Apr 09, 2023 Time Seen by a Provider: 07:24 Progress/Assessment & Plan no complaints Vital Signs Date Time Temp Pulse Resp B/P (MAP) Pulse Ox O2 Delivery O2 Flow Rate FiO2 04/07/23 08:02 37.2 108 18 120/64 (82) 93 Room Air 04/07/23 08:00 Room Air 04/07/23 04:00 116 18 113/56 (75) 93 04/07/23 00:00 124 18 116/63 (80) 95 Room Air 04/06/23 22:34 Room Air 04/06/23 20:36 37.4 117 16 120/78 (92) 94 Room Air 04/06/23 20:30 94 Room Air 04/06/23 15:50 37.5 101 16 143/70 (94) 97 Room Air 04/06/23 15:25 Room Air 04/06/23 15:20 36.7 20 111/71 (84) 98 Room Air 04/06/23 15:10 Room Air 04/06/23 15:10 16 111/59 (76) 98 Room Air 04/06/23 15:00 14 110/67 (81) 98 Room Air 04/06/23 14:50 Room Air 04/06/23 14:50 14 81/45 (57) 100 Room Air 04/06/23 14:40 15 90/55 (67) 100 OxyMask 3.00 04/06/23 14:36 37.2 14 98/62 (74) 100 OxyMask 6.00 04/06/23 14:36 OxyMask 6.00 04/06/23 11:46 37.0 100 110/69 (83) Room Air I & O 04/07/23 07:00 Intake Total 1890 ml Output Total 2425 ml Balance -535 ml Laboratory Tests Test 04/07/23 05:04 Range/Units Hemoglobin 11.2 L 11.5-16.0 g/dL Hematocrit 32 L 35-52 % LLE intact DF and PF of toes and ankle intact sensation throughout pulses equal s/p L hip IM catalina PT/OT Final Diagnosis no complaints Laboratory Tests Test 04/09/23 05:01 Range/Units White Blood Count 9.3 4.3-11.0 10^3/uL Red Blood Count 3.31 L 3.80-5.11 10^6/uL Hemoglobin 9.9 L 11.5-16.0 g/dL Hematocrit 29 L 35-52 % Mean Corpuscular Volume 87 80-99 fL Mean Corpuscular Hemoglobin 30 25-34 pg Mean Corpuscular Hemoglobin Concent 35 32-36 g/dL Red Cell Distribution Width 12.3 10.0-14.5 % Platelet Count 266 130-400 10^3/uL Mean Platelet Volume 10.4 9.0-12.2 fL Sodium Level 139 135-145 MMOL/L Potassium Level 3.0 L 3.6-5.0 MMOL/L Chloride Level 103 98-107 MMOL/L Carbon Dioxide Level 27 21-32 MMOL/L Anion Gap 9 5-14 MMOL/L Blood Urea Nitrogen 8 7-18 MG/DL Creatinine 0.53 L 0.60-1.30 MG/DL Estimat Glomerular Filtration Rate 103 BUN/Creatinine Ratio 15 Glucose Level 107 H 70-105 MG/DL Calcium Level 8.4 L 8.5-10.1 MG/DL Vital Signs Date Time Temp Pulse Resp B/P (MAP) Pulse Ox O2 Delivery O2 Flow Rate FiO2 04/09/23 07:29 36.7 102 20 127/67 (87) 96 Room Air 04/09/23 03:38 36.7 95 18 110/66 (81) 96 Room Air 0.00 0.00 04/08/23 23:35 37.1 94 18 114/61 (78) 96 Room Air 0.00 0.00 04/08/23 20:00 Room Air 04/08/23 19:31 37.2 105 18 111/57 (75) 95 Room Air 04/08/23 15:32 37.5 100 20 118/58 (78) 94 Room Air 04/08/23 11:33 37.0 103 16 121/56 (77) 94 Room Air 04/08/23 08:25 36.6 107 18 121/67 (85) 95 Room Air 04/08/23 08:00 Room Air I & O 04/09/23 07:00 Intake Total 2290 ml Output Total 400 ml Balance 1890 ml LLE--no calf tenderness neg Anant's dressing intact s/p IM catalina Left hip PT/OT IRU? DAVID LAST MD Apr 09, 2023 07:32
[2023-04-09] MEDS: ENOXAPARIN 40 MG/0.4 ML SYRINGE SC SCH (08:23)
[2023-04-09] MEDS: CITALOPRAM 10 MG TABLET PO SCH (08:23)
--- NOTE | 2023-04-09 08:55 | Physical Therapy Daily Note ---
PT Daily Note-Current Subjective Patient agrees to PT. Pain Numeric Pain Scale: 5-Moderate Pain Location: Left Location Body Site: Hip Pain Description: Acute Section J - Health Conditions 1. Rarely or not at all 2. Occasionally 3. Frequently 4. Almost constantly 8. Unable to answer Pain Effect on Sleep: 1 Pain Interference with Therapy: 1 Pain Interference w/Day-to-Day: 1 Transfers SCALE: Activities may be completed with or without assistive devices. 4-Dretbnquod-scdqufq completes the activity by him/herself with no assistance from a helper. 5-Set-up or Clean-up Assistance-helper sets up or cleans up; patient completes activity. [place] assists only prior to or following the activity. 4-Supervision or Touching Assistance-helper provides verbal cues and/or touching/steadying and/or contact guard assistance as patient completes activity. Assistance may be provided throughout the activity or intermittently. 3-Partial/Moderate Assistance-helper does LESS THAN HALF the effort. [place] lifts, holds or supports trunk or limbs, but provides less than half the effort. 2-Substantial/Maximal Assistance-helper does MORE THAN HALF the effort. [place] lifts or holds trunk or limbs and provides more than half the effort. 9-Iwqfodhqd-gaiclq does ALL the effort. Patient does none of the effort to complete the activity. Or, the assistance of 2 or more helpers is required for the patient to complete the activity. If activity was not attempted, code reason: 7-Patient Refused. 9-Not Applicable-not attempted and the patient did not perform the activity before the current illness, exacerbation or injury. 10-Not Attempted due to Environmental Limitations-(lack of equipment, weather restraints, etc.). 88-Not Attempted due to Medical Conditions or Safety Concerns. Lying to Sitting/Side of Bed(Q: 4 Sit to Stand (QC): 4 Chair/Vhi-es-Xuqwl Xfer(QC): 4 Toilet Transfer (QC): 4 Weight Bearing Right Lower Extremity: Right Full Weight Bearing Left Lower Extremity: Left Touch Toe Bearing Gait Training Distance: 200' Walk 10 feet (QC): 4 Walk 50 ft with 2 Turns(QC): 4 Walk 150 ft (QC): 4 Gait Assistive Device: FWW slow, step to gait sequence with maintaining TTWB L LE Exercises Seated Therapy Exercises: Ankle pumps, Long arc quads, Hip flexion Seated Reps: 15 Assessment Patient much improved on this date. Patient up in recliner with needs met. Continue to increase activity as tolerated by patient. PT Dish Room Worker Goals Dish Room Worker Goals PT Group Home Goals Time Frame: Apr 14, 2023 Sit to Lying (QC): 4 Lying-Sitting on Side/Bed(QC): 4 Sit to Stand (QC): 6 Chair/Hqz-rk-Qhnvy Xfer(QC): 6 Does the Patient Walk: Yes Walk 10 feet (QC): 4 PT Plan Treatment/Plan Treatment Plan: Continue Plan of Care Treatment Plan: Bed Mobility, Concurrent Therapy, Education, Functional Activity Adán, Functional Strength, Gait, Safety, Therapeutic Exercise, Tra nsfers Treatment Duration: Apr 14, 2023 Frequency: 11 times per week Estimated Hrs Per Day: .5 hour per day Patient and/or Family Agrees t: Yes Time Time In: 745 Time Out: 813 DATE: Apr 09, 2023 Total Billed Treatment Time: 28 Total Billed Treatment 1 visit GT 15 min EX 13 min LAURY PORTER PT Apr 09, 2023 08:55
[2023-04-09] MEDS ORDERED: POTASSIUM CHLORIDE 20 MEQ TABLET PO NR (11:00)
[2023-04-09] MEDS ORDERED: NS IV 500 ML 500 ML IV SCH (11:30)
[2023-04-09] MEDS: POTASSIUM CL 10MEQ/50ML IVPB 50 ML IV SCH ×4 (11:41→13:42)
[2023-04-09 11:59] VITALS: BP 111/59
--- NOTE | 2023-04-09 14:03 | Physical Therapy Daily Note ---
PT Daily Note-Current Subjective Patient receiving potassium. Agrees to exercises Pain Section J - Health Conditions 1. Rarely or not at all 2. Occasionally 3. Frequently 4. Almost constantly 8. Unable to answer Pain Effect on Sleep: 1 Pain Interference with Therapy: 1 Pain Interference w/Day-to-Day: 1 Mental Status Patient Orientation: Normal For Age Attachments: IV Transfers SCALE: Activities may be completed with or without assistive devices. 5-Dkmslgasax-gyvtxhk completes the activity by him/herself with no assistance from a helper. 5-Set-up or Clean-up Assistance-helper sets up or cleans up; patient completes activity. [place] assists only prior to or following the activity. 4-Supervision or Touching Assistance-helper provides verbal cues and/or touching/steadying and/or contact guard assistance as patient completes activity. Assistance may be provided throughout the activity or intermittently. 3-Partial/Moderate Assistance-helper does LESS THAN HALF the effort. Purvis lifts, holds or supports trunk or limbs, but provides less than half the effort. 2-Substantial/Maximal Assistance-helper does MORE THAN HALF the effort. [place] lifts or holds trunk or limbs and provides more than half the effort. 0-Oaunmqhcv-hqabwj does ALL the effort. Patient does none of the effort to complete the activity. Or, the assistance of 2 or more helpers is required for the patient to complete the activity. If activity was not attempted, code reason: 7-Patient Refused. 9-Not Applicable-not attempted and the patient did not perform the activity before the current illness, exacerbation or injury. 10-Not Attempted due to Environmental Limitations-(lack of equipment, weather restraints, etc.). 88-Not Attempted due to Medical Conditions or Safety Concerns. Weight Bearing Right Lower Extremity: Right Full Weight Bearing Left Lower Extremity: Left Touch Toe Bearing Exercises Seated Therapy Exercises: Ankle pumps, Long arc quads, Hip flexion Seated Reps: 15 (2 sets) Assessment PT to increase activity as tolerated by patient. Patient remains up in recliner with needs met. PT Prison Goals Senior Systems Software Engineer Goals PT Prison Goals Time Frame: Apr 14, 2023 Sit to Lying (QC): 4 Lying-Sitting on Side/Bed(QC): 4 Sit to Stand (QC): 6 Chair/Jcx-ky-Hunwh Xfer(QC): 6 Does the Patient Walk: Yes Walk 10 feet (QC): 4 PT Plan Treatment/Plan Treatment Plan: Continue Plan of Care Treatment Plan: Bed Mobility, Concurrent Therapy, Education, Functional Activity Adán, Functional Strength, Gait, Safety, Therapeutic Exercise, Transfers Treatment Duration: Apr 14, 2023 Frequency: 11 times per week Estimated Hrs Per Day: .5 hour per day Patient and/or Family Agrees t: Yes Time Time In: 1350 Time Out: 1358 DATE: Apr 09, 2023 Total Billed Treatment Time: 8 Total Billed Treatment 1 visit EX 8 min LAURY PORTER PT Apr 09, 2023 14:03
[2023-04-09 15:17] VITALS: BP 120/60
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
[2023-04-09 19:13] VITALS: BP 110/55
[2023-04-09] MEDS: HYDROcodone/ACETAMINOPHEN 7.5 MG/325 MG TABLET PO PRN (20:50)
[2023-04-09 23:33] VITALS: BP 116/60
[2023-04-10] MEDS: HYDROcodone/ACETAMINOPHEN 7.5 MG/325 MG TABLET PO PRN ×2 (02:05→20:57)
[2023-04-10 03:20] VITALS: BP 110/58
--- NOTE | 2023-04-10 07:05 | Progress Note ---
Standard Progress Note Progress Notes/Assess & Plan Date Seen by a Provider: Apr 10, 2023 Time Seen by a Provider: 07:00 Progress/Assessment & Plan no complaints Vital Signs Date Time Temp Pulse Resp B/P (MAP) Pulse Ox O2 Delivery O2 Flow Rate FiO2 04/07/23 08:02 37.2 108 18 120/64 (82) 93 Room Air 04/07/23 08:00 Room Air 04/07/23 04:00 116 18 113/56 (75) 93 04/07/23 00:00 124 18 116/63 (80) 95 Room Air 04/06/23 22:34 Room Air 04/06/23 20:36 37.4 117 16 120/78 (92) 94 Room Air 04/06/23 20:30 94 Room Air 04/06/23 15:50 37.5 101 16 143/70 (94) 97 Room Air 04/06/23 15:25 Room Air 04/06/23 15:20 36.7 20 111/71 (84) 98 Room Air 04/06/23 15:10 Room Air 04/06/23 15:10 16 111/59 (76) 98 Room Air 04/06/23 15:00 14 110/67 (81) 98 Room Air 04/06/23 14:50 Room Air 04/06/23 14:50 14 81/45 (57) 100 Room Air 04/06/23 14:40 15 90/55 (67) 100 OxyMask 3.00 04/06/23 14:36 37.2 14 98/62 (74) 100 OxyMask 6.00 04/06/23 14:36 OxyMask 6.00 04/06/23 11:46 37.0 100 110/69 (83) Room Air I & O 04/07/23 07:00 Intake Total 1890 ml Output Total 2425 ml Balance -535 ml Laboratory Tests Test 04/07/23 05:04 Range/Units Hemoglobin 11.2 L 11.5-16.0 g/dL Hematocrit 32 L 35-52 % LLE intact DF and PF of toes and ankle intact sensation throughout pulses equal s/p L hip IM catalina PT/OT Final Diagnosis no complaints Vital Signs Date Time Temp Pulse Resp B/P (MAP) Pulse Ox O2 Delivery O2 Flow Rate FiO2 04/10/23 03:20 36.6 90 18 110/58 (75) 94 04/09/23 23:33 37.1 104 18 116/60 (78) 97 04/09/23 20:45 Room Air 04/09/23 19:13 36.7 109 20 110/55 (73) 96 04/09/23 15:17 36.8 106 18 120/60 (80) 94 Room Air 04/09/23 11:59 36.7 83 21 111/59 (76) 92 Room Air 04/09/23 08:00 Room Air 04/09/23 07:29 36.7 102 20 127/67 (87) 96 Room Air I & O 04/10/23 07:00 Intake Total 1040 ml Balance 1040 ml L hip incisions clean and dry no calf tenderness s/p L hip iM catalina PT/OT pt would prefer to go home vs IRU will see how she does today with mobility possible DC home tomorrow DAVID LAST MD Apr 10, 2023 07:05
[2023-04-10 07:21] VITALS: BP 113/61
[2023-04-10] MEDS: CITALOPRAM 10 MG TABLET PO SCH (09:02)
[2023-04-10] MEDS: ENOXAPARIN 40 MG/0.4 ML SYRINGE SC SCH (09:03)
--- NOTE | 2023-04-10 09:05 | Occupational Therapy Eval ---
OT Evaluation-General/PLF Medical Diagnosis Admission Date Apr 05, 2023 at 14:06 Medical Diagnosis: Intertrochanteric fracture L femur Onset Date: Apr 06, 2023 Therapy Diagnosis Therapy Diagnosis: IM 04/06, s/p L fem FX Height/Weight Height (Feet): 5 Height (Inches): 1.00 Weight (Pounds): 150 Weight (Ounces): 0.0 Precautions Precautions/Isolations: Standard Precautions Weight Bear Status Weight Bearing Restriction: Touch Toe Bearing Location Restriction: L LE Referral Physician: Judith Referral Reason: Activity Tolerance, Self Care, Evaluation/Treatment Medical History Current History Left intertrochnteric femur fracture s/p IM nail 04/06 Social History Home: Single Level Current Living Status: Alone Entry Into Home: Stairs With Railing Steps Into Home: 2 ADL-Prior Level of Function SCALE: Activities may be completed with or without assistive devices. 5-Thijmyxdlv-qnlvfkw completes the activity by him/herself with no assistance from a helper. 5-Set-up or Clean-up Assistance-helper sets up or cleans up; patient completes activity. [place] assists only prior to or following the activity. 4-Supervision or Touching Assistance-helper provides verbal cues and/or touching/steadying and/or contact guard assistance as patient completes activ ity. Assistance may be provided throughout the activity or intermittently. 3-Partial/Moderate Assistance-helper does LESS THAN HALF the effort. [place] lifts, holds or supports trunk or limbs, but provides less than half the effort. 2-Substantial/Maximal Assistance-helper does MORE THAN HALF the effort. [place] lifts or holds trunk or limbs and provides more than half the effort. 9-Lwzxvqzvd-gsfxya does ALL the effort. Patient does none of the effort to complete the activity. Or, the assistance of 2 or more helpers is required for the patient to complete the activity. If activity was not attempted, code reason: 7-Patient Refused. 9-Not Applicable-not attempted and the patient did not perform the activity before the current illness, exacerbation or injury. 10-Not Attempted due to Environmental Limitations-(lack of equipment, weather restraints, etc.). 88-Not Attempted due to Medical Conditions or Safety Concerns. Self Care: Independent Functional Cognition: Independent Drive Self: Yes OT Current Status Subjective Up in recliner, wants to go home, agreeable to OT Pain Numeric Pain Scale: 4 Location: Left Location Body Site: Hip Mental Status/Objective Patient Orientation: Person, Place, Time, Situation Attachments: Other-See Comments (NA) Current Glasses/Contacts: Yes Hand Dominance: Right Upper Extremity ROM BUE ROM WFLS Upper Extremity Coordination INTACT Upper Extremity Sensation INTACT Upper Extremity Strength 4/5 BUE grossly ADL-Treatment ADL-Current Patient is released to move about AD MYRIAM in room and use toilet w/o assistance from staff. Patient to use FWW w/ transfers and ambulation Eating (QC): 6 Oral Hygiene (QC): 6 (standing w/ FWW at sink) Shower/Bathe Self (QC): 7 Upper Body Dressing (QC): 6 Lower Body Dressing (QC): 6 On/Off Footwear (QC): 6 Toileting Hygiene (QC): 6 Education OT Patient Education: Correct positioning, Exercise program, Modified ADL techniques, Progress toward Goal/Update tx plan, Purpose of tx/functional activities, Reviewed precautions, Safety issues, Transfer techniques, Use of adapted equipment Teaching Recipient: Patient Teaching Methods: Demonstration, Discussion Response to Teaching: Return Demonstration OT Skilled Nursing Goals Rabies Inspector Goals 1=Demonstrate adherence to instructed precautions during ADL tasks. 2=Patient will verbalize/demonstrate understanding of assistive d evices/modifications for ADL. 3=Patient will improve strength/tolerance for activity to enable patient to perform ADL's. OT Education/Plan Problem List/Assessment Assessment: No Skilled OT Needs ID'd Discharge Recommendations Plan/Recommendations: Discontinue OT Treatment Plan/Plan of Care Patient would benefit from OT for education, treatment and training to promote independence in ADL's, mobility, safety and/or upper extremity function for ADL's. Plan of Care: OTHER (NO OT indicated for treatment, DC OT services) Treatment Duration: Apr 10, 2023 Frequency: 1 time per week Rehab Potential: Good Time Start Time: 09:00 Stop Time: 09:25 DATE: Apr 10, 2023 Total Time Billed (hr/min): 25 Billed Treatment Time EVM, ADL 25 min CAT LYLES OT Apr 10, 2023 09:05
--- NOTE | 2023-04-10 11:33 | Physical Therapy Daily Note ---
PT Daily Note-Current Subjective Patient agrees to therapy. Pain Section J - Health Conditions 1. Rarely or not at all 2. Occasionally 3. Frequently 4. Almost constantly 8. Unable to answer Pain Effect on Sleep: 1 Pain Interference with Therapy: 1 Pain Interference w/Day-to-Day: 1 Transfers SCALE: Activities may be completed with or without assistive devices. 4-Bjzeltxgsz-cbaiyxr completes the activity by him/herself with no assistance from a helper. 5-Set-up or Clean-up Assistance-helper sets up or cleans up; patient completes activity. [place] assists only prior to or following the activity. 4-Supervision or Touching Assistance-helper provides verbal cues and/or touching/steadying and/or contact guard assistance as patient completes activity. Assistance may be provided throughout the activity or intermittently. 3-Partial/Moderate Assistance-helper does LESS THAN HALF the effort. Charlo lifts, holds or supports trunk or limbs, but provides less than half the effort. 2-Substantial/Maximal Assistance-helper does MORE THAN HALF the effort. Charlo lifts or holds trunk or limbs and provides more than half the effort. 0-Pximvsfhs-echxrc does ALL the effort. Patient does none of the effort to complete the activity. Or, the assistance of 2 or more helpers is required for the patient to complete the activity. If activity was not attempted, code reason: 7-Patient Refused. 9-Not Applicable-not attempted and the patient did not perform the activity before the current illness, exacerbation or injury. 10-Not Attempted due to Environmental Limitations-(lack of equipment, weather restraints, etc.). 88-Not Attempted due to Medical Conditions or Safety Concerns. Sit to Stand (QC): 6 Chair/Tmt-je-Iciwf Xfer(QC): 6 Toilet Transfer (QC): 6 Weight Bearing Right Lower Extremity: Right Full Weight Bearing Left Lower Extremity: Left Touch Toe Bearing Gait Training Distance: 225' Walk 10 feet (QC): 5 Walk 50 ft with 2 Turns(QC): 5 Walk 150 ft (QC): 5 Gait Assistive Device: FWW slow, steady gait sequence (TTWB L) Assessment Patient instructed to be up ad charles in room and hallway. Patient progressing with treatment plan PT Paint Roller Covers Supervisor Goals Longterm Goals PT Paint Roller Covers Supervisor Goals Time Frame: Apr 14, 2023 Sit to Lying (QC): 4 Lying-Sitting on Side/Bed(QC): 4 Sit to Stand (QC): 6 Chair/Tjz-ro-Apyju Xfer(QC): 6 Does the Patient Walk: Yes Walk 10 feet (QC): 4 PT Plan Treatment/Plan Treatment Plan: Continue Plan of Care Treatment Plan: Bed Mobility, Concurrent Therapy, Education, Functional Activity Adán, Functional Strength, Gait, Safety, Therapeutic Exercise, Transfers Treatment Duration: Apr 14, 2023 Frequency: 11 times per week Estimated Hrs Per Day: .5 hour per day Patient and/or Family Agrees t: Yes Time Time In: 913 Time Out: 924 DATE: Apr 10, 2023 Total Billed Treatment Time: 11 Total Billed Treatment 1 visit FA 11 min LAURY PORTER PT Apr 10, 2023 11:33
[2023-04-10 11:52] VITALS: BP 109/55
[2023-04-10 15:19] VITALS: BP 117/70
[2023-04-10 19:33] VITALS: BP 135/61
[2023-04-10 23:35] VITALS: BP 113/70
[2023-04-11 07:51] VITALS: BP 126/67
[2023-04-11] MEDS: CITALOPRAM 10 MG TABLET PO SCH (08:26)
[2023-04-11] MEDS: ENOXAPARIN 40 MG/0.4 ML SYRINGE SC SCH (08:27)
--- NOTE | 2023-04-11 10:24 | Progress Note ---
Standard Progress Note Progress Notes/Assess & Plan Date Seen by a Provider: Apr 11, 2023 Time Seen by a Provider: 10:24 Progress/Assessment & Plan no complaints Vital Signs Date Time Temp Pulse Resp B/P (MAP) Pulse Ox O2 Delivery O2 Flow Rate FiO2 04/07/23 08:02 37.2 108 18 120/64 (82) 93 Room Air 04/07/23 08:00 Room Air 04/07/23 04:00 116 18 113/56 (75) 93 04/07/23 00:00 124 18 116/63 (80) 95 Room Air 04/06/23 22:34 Room Air 04/06/23 20:36 37.4 117 16 120/78 (92) 94 Room Air 04/06/23 20:30 94 Room Air 04/06/23 15:50 37.5 101 16 143/70 (94) 97 Room Air 04/06/23 15:25 Room Air 04/06/23 15:20 36.7 20 111/71 (84) 98 Room Air 04/06/23 15:10 Room Air 04/06/23 15:10 16 111/59 (76) 98 Room Air 04/06/23 15:00 14 110/67 (81) 98 Room Air 04/06/23 14:50 Room Air 04/06/23 14:50 14 81/45 (57) 100 Room Air 04/06/23 14:40 15 90/55 (67) 100 OxyMask 3.00 04/06/23 14:36 37.2 14 98/62 (74) 100 OxyMask 6.00 04/06/23 14:36 OxyMask 6.00 04/06/23 11:46 37.0 100 110/69 (83) Room Air I & O 04/07/23 07:00 Intake Total 1890 ml Output Total 2425 ml Balance -535 ml Laboratory Tests Test 04/07/23 05:04 Range/Units Hemoglobin 11.2 L 11.5-16.0 g/dL Hematocrit 32 L 35-52 % LLE intact DF and PF of toes and ankle intact sensation throughout pulses equal s/p L hip IM catalina PT/OT Final Diagnosis no complaints Vital Signs Date Time Temp Pulse Resp B/P (MAP) Pulse Ox O2 Delivery O2 Flow Rate FiO2 04/11/23 08:29 Room Air 04/11/23 07:51 36.8 93 18 126/67 (86) 96 Room Air 04/10/23 23:35 36.7 89 18 113/70 (84) 97 Room Air 04/10/23 20:55 Room Air 04/10/23 19:33 37.2 108 18 135/61 (85) 94 Room Air 04/10/23 15:19 36.4 102 19 117/70 (86) 95 Room Air 04/10/23 11:52 36.4 91 20 109/55 (73) 95 Room Air I & O 04/11/23 07:00 Intake Total 2220 ml Balance 2220 ml LLE--no calf tenderness neg Clayton's incisions benign s/p L hip IM catalina DC home DAVID LAST MD Apr 11, 2023 10:24
[2023-04-11 11:45] VITALS: BP 126/67
--- NOTE | 2023-04-11 11:50 | Physical Therapy Daily Note ---
PT Daily Note-Current Subjective Patient sitting EOB upon PT arrival, agreeable to treatment. Patient rates pain in Left hip at 2/10 currently. Pain Section J - Health Conditions 1. Rarely or not at all 2. Occasionally 3. Frequently 4. Almost constantly 8. Unable to answer Pain Effect on Sleep: 1 Pain Interference with Therapy: 1 Pain Interference w/Day-to-Day: 1 Mental Status Patient Orientation: Person, Place, Time, Situation Transfers SCALE: Activities may be completed with or without assistive devices. 8-Deisjtjrrn-snwtbmj completes the activity by him/herself with no assistance from a helper. 5-Set-up or Clean-up Assistance-helper sets up or cleans up; patient completes activity. [place] assists only prior to or following the activity. 4-Supervision or Touching Assistance-helper provides verbal cues and/or touchi ng/steadying and/or contact guard assistance as patient completes activity. Assistance may be provided throughout the activity or intermittently. 3-Partial/Moderate Assistance-helper does LESS THAN HALF the effort. [place] lifts, holds or supports trunk or limbs, but provides less than half the effort. 2-Substantial/Maximal Assistance-helper does MORE THAN HALF the effort. [place] lifts or holds trunk or limbs and provides more than half the effort. 3-Zglyirkth-bzqgwu does ALL the effort. Patient does none of the effort to complete the activity. Or, the assistance of 2 or more helpers is required for the patient to complete the activity. If activity was not attempted, code reason: 7-Patient Refused. 9-Not Applicable-not attempted and the patient did not perform the activity before the current illness, exacerbation or injury. 10-Not Attempted due to Environmental Limitations-(lack of equipment, weather restraints, etc.). 88-Not Attempted due to Medical Conditions or Safety Concerns. Roll Left & Right (QC): 4 Sit to Lying (QC): 4 Lying to Sitting/Side of Bed(Q: 4 Sit to Stand (QC): 4 Chair/Pnf-yx-Vfprk Xfer(QC): 4 Weight Bearing Right Lower Extremity: Right Full Weight Bearing Left Lower Extremity: Left Touch Toe Bearing Gait Training Does the Patient Walk?: Yes Distance: 300' Walk 10 feet (QC): 6 Walk 50 ft with 2 Turns(QC): 4 Walk 150 ft (QC): 4 Gait Assistive Device: FWW Assessment Current Status: Good Progress Patient tolerated treatment well. Patient ambulates 300' with FWW, with SBA and verbal cues for progression. Patient sitting EOB post treatment with all needs met, nursing notified, call light in hand and friend in the room. PT Assistant Production Editor Goals Assistant Production Editor Goals PT Detention Goals Time Frame: Apr 14, 2023 Sit to Lying (QC): 4 Lying-Sitting on Side/Bed(QC): 4 Sit to Stand (QC): 6 Chair/Xru-ze-Mdlmq Xfer(QC): 6 Does the Patient Walk: Yes Walk 10 feet (QC): 4 PT Plan Treatment/Plan Treatment Plan: Continue Plan of Care Treatment Plan: Bed Mobility, Concurrent Therapy, Education, Functional Activity Adán, Functional Strength, Gait, Safety, Therapeutic Exercise, Transfers Treatment Duration: Apr 14, 2023 Frequency: 11 times per week Estimated Hrs Per Day: .5 hour per day Patient and/or Family Agrees t: Yes Safety Risks/Education Patient Education: Gait Training, Transfer Techniques Teaching Recipient: Patient Teaching Methods: Demonstration, Discussion Response to Teaching: Verbalize Understanding, Return Demonstration Time Time In: 1115 Time Out: 1130 DATE: Apr 11, 2023 Total Billed Treatment Time: 15 Total Billed Treatment Visit, GT EM ASHER PT Apr 11, 2023 11:50
--- NOTE | 2023-04-12 04:22 | DISCHARGE SUMMARY ---
DIAGNOSES: 1. Left intertrochanteric femur fracture. 2. History of anxiety. PROCEDURE: Left hip intramedullary nail. SUMMARY: The patient is a 63-year-old female who fell at home and presented with left hip pain. She was found to have an intertrochanteric femur fracture. She underwent intramedullary nail fixation the morning after admission and did well. At the time of discharge, her wound was clean and dry. She had no calf tenderness. Negative Homans sign. She was tolerating diet well and tolerating pain with oral pain medication. CONDITION AT DISCHARGE: Good. DISCHARGE DIET: Regular. FOLLOWUP: In 2 weeks. ACTIVITIES: 50% weightbearing left lower extremity. DISCHARGE MEDICATIONS: Home medications. One aspirin per day for 30 days and Percocet. Job ID: [id number] DocumentID: [id number] Dictated Date: 04/11/2023 10:27:22 City Clerk Date: 04/12/2023 04:19:00 Dictated By: DAVID LAST MD
== END 2023-04-11 11:45 | disposition home or self-care (01) | DRG 482 ==
LOC: EDUNIT# 11:04 → ER 11:05 → 4TH 14:06
PROVIDERS: ADMIT Orthopaedic Surgery; ATTEND Orthopaedic Surgery
PROC: 0QS736Z Reposition Left Upper Femur with Intramedullary Internal Fixation Device, Percutaneous Approach (ICD-10-PCS; principal; 2023-04-06 13:26)
DX: S72.142A Displaced intertrochanteric fracture of left femur, initial encounter for closed fracture (principal); E87.6 Hypokalemia; D72.828 Other elevated white blood cell count; I10 Essential (primary) hypertension; F41.9 Anxiety disorder, unspecified; H54.7 Unspecified visual loss; R26.81 Unsteadiness on feet; Z66 Do not resuscitate; Z79.899 Other long term (current) drug therapy; Z91.09 Other allergy status, other than to drugs and biological substances; W18.39XA Other fall on same level, initial encounter; Y92.015 Private garage of single-family (private) house as the place of occurrence of the external cause
CPT/HCPCS: 36415; 51702; 71045; 76000; 80048; 80053; 81000; 82550; 83735; 85007; 85014; 85018; 85025; 85027; 87081; 94664

== ENCOUNTER → 2023-04-26 | Outpatient (RCR) | payer BC ==
[~2023-04-26] MED LIST changes: +ASCO-262 PO; +CALC-823 PO; +OXYC1TAB87 PO; +VITA-189 PO
== END | disposition home or self-care (01) ==
PROVIDERS: ATTEND Orthopaedic Surgery
DX: S72.142D Displaced intertrochanteric fracture of left femur, subsequent encounter for closed fracture with routine healing (principal); X58.XXXD Exposure to other specified factors, subsequent encounter

== ENCOUNTER 2023-05-25 13:52 | Outpatient (RCR) | payer BC | END 2023-05-26 | disposition home or self-care (01) | PROVIDERS: ATTEND Orthopaedic Surgery | DX: S72.142D Displaced intertrochanteric fracture of left femur, subsequent encounter for closed fracture with routine healing (principal); X58.XXXD Exposure to other specified factors, subsequent encounter ==

== ENCOUNTER 2023-06-25 14:29 | Outpatient (RCR) | payer BC | END 2023-06-26 | disposition home or self-care (01) | PROVIDERS: ATTEND Orthopaedic Surgery | DX: S72.142D Displaced intertrochanteric fracture of left femur, subsequent encounter for closed fracture with routine healing (principal); X58.XXXD Exposure to other specified factors, subsequent encounter ==

== ENCOUNTER 2023-07-24 16:00 | Outpatient (RCR) | payer BC | END 2023-07-26 | disposition home or self-care (01) | PROVIDERS: ATTEND Orthopaedic Surgery | DX: S72.142D Displaced intertrochanteric fracture of left femur, subsequent encounter for closed fracture with routine healing (principal); X58.XXXD Exposure to other specified factors, subsequent encounter ==